=== PATIENT | female | born 1965 | race Caucasian/White ===

== ENCOUNTER → 2024-12-04 10:51 | Outpatient (REF) | payer BC, SELFPAY ==
[2024-12-04 13:12] LABS: TSH < 0.02 uIU/ml (0.47-4.68)
== END ==
LOC: REG 10:51
PROVIDERS: ATTENDING PHYSICIAN Physician Assistant; FAMILY PHYSICIAN Internal Medicine
DX: E06.3 Autoimmune thyroiditis (principal)
CPT/HCPCS: 36415; 84439; 84443